=== PATIENT | female | born 1935 | race Caucasian/White ===

== ENCOUNTER → 2017-09-05 | Outpatient (CLI) | payer MEDICARE, BC ==
[~2017-09-05] MED LIST: ASPI325T8 PO; ATOR20TA PO; DOCU100C28 PO; GADOBUTROL 7.5 MMOL/7.5 ML VIAL IV ONE; HYDR-971 PO; LEVO25TA4 PO; LOSA1TAB25 PO
--- NOTE | 2017-09-05 11:54 | KCIC ---
EXAM: Brain MRI with and without contrast. HISTORY: Dizziness. TECHNIQUE: Multiplanar, multisequence magnetic resonance imaging of the brain was performed prior to and following the administration of 5 cc Gadavist intravenous contrast. COMPARISON: None. FINDINGS: There is no restricted diffusion to suggest acute or subacute infarction. 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 No additional suspicious enhancing lesion is seen There are scattered and confluent areas of T2/FLAIR hyperintensity within the cerebral white matter and mandie, a nonspecific finding likely due to chronic small vessel disease. There is moderate ventricular enlargement due to cerebral atrophy. This is not clearly greater than expected for cerebral volume loss to suggest hydrocephalus. The orbits are unremarkable. There is mild left maxillary sinus mucosal thickening. There is fluid within the right greater than left mastoid air cells. There are normal flow voids within the cerebral vessels. IMPRESSION: 1. No acute intracranial finding. 2. Signal change within the cerebral white matter and mandie, likely due to chronic small vessel disease. 3. Cerebral atrophy with compensatory enlargement of the ventricles. Electronically signed by: Gaye Valentine MD (09/05/2017 11:51 AM) [id number]
== END | disposition home or self-care (01) ==
LOC: KCIC MRI 10:38
PROVIDERS: ATTEND Nurse Practitioner Family
DX: G31.9 Degenerative disease of nervous system, unspecified (principal); I51.7 Cardiomegaly; R90.82 White matter disease, unspecified; R42 Dizziness and giddiness
CPT/HCPCS: 70553; 82565; A9585